=== PATIENT | female | born 1965 | race Caucasian/White ===

== ENCOUNTER 2021-03-14 14:26 | Outpatient (CLI) | payer SELFPAY ==
[2021-03-14 14:46] VITALS: BP 131/77; PULSE 76; RESP 16; TEMP 36.7; O2SAT 100; BMI 35.9
[2021-03-14] MEDS: 0.9% Saline Lock 10 ML Syringe IV (14:46)
[2021-03-14 15:24] VITALS: BP 124/70; PULSE 74; RESP 16; TEMP 36.6; O2SAT 98
[2021-03-14 16:17] VITALS: BP 126/74; PULSE 71; RESP 16; TEMP 36.9; O2SAT 100
== END 2021-03-14 16:25 | disposition home or self-care (01) ==
LOC: MS3OUT 14:26 → MS3 14:27
PROVIDERS: Referring Provider Nurse Practitioner Adult Health; Visit Provider Nurse Practitioner Adult Health
DX: Z23 Encounter for immunization (principal); U07.1 COVID-19
CPT/HCPCS: J7050; M0245; Q0245; A4216